=== PATIENT | female | born 1935 | race Caucasian/White ===

== ENCOUNTER 2020-10-19 13:20 | Outpatient (CLI) | payer MEDICARE | END 2020-10-19 13:21 | disposition home or self-care (01) | LOC: CSHMRI 13:20 | PROVIDERS: ATTEND Anesthesiology Pain Medicine | DX: M16.10 Unilateral primary osteoarthritis, unspecified hip (principal); M48.02 Spinal stenosis, cervical region; M89.9 Disorder of bone, unspecified; M47.812 Spondylosis without myelopathy or radiculopathy, cervical region | CPT/HCPCS: 72141 ==

== ENCOUNTER 2020-12-11 15:35 | Outpatient (CLI) | payer MEDICARE | END 2020-12-11 15:36 | disposition home or self-care (01) | LOC: CSHMRI 15:35 | PROVIDERS: ATTEND Anesthesiology Pain Medicine | DX: M16.11 Unilateral primary osteoarthritis, right hip (principal); M70.62 Trochanteric bursitis, left hip; M70.61 Trochanteric bursitis, right hip; M24.852 Other specific joint derangements of left hip, not elsewhere classified ==